=== PATIENT | female | born 1975 | race Caucasian/White ===

== ENCOUNTER 2024-09-26 09:10 | Day surgery (SDC) | payer BC ==
[~2024-09-26] VITALS: Ht 175.3 cm; Wt 97.3 kg
[~2024-09-26 09:10] MED LIST: CEFAZOLIN SODIUM 2 GM/20 ML SYR IV SCH; IBLOOD GLUCOSE TEST STRIP 1 EA TEST VI PRN; LACTATED RINGER'S 1,000 ML IV SCH; LIDOCAINE HCL 1% 30 ML SDV ONE; LIDOCAINE HCL 1% 5 ML SDV INJ ONE; METOPROLOL TAR100 MG PO; MIRENA1 EAC3 VI; MORPHINE SULFATE 4 MG/ML VIAL IV PRN; NASAL DECONGEST30 MG PO; OXYCODONE/APAP 5/325 TAB PO PRN; PHENAZOPYRIDINE HCL 100 MG TAB PO ONE; [UNRECOGNIZED DRUG - OTHER] PO
[2024-09-26 09:34] VITALS: BP 150/66
[2024-09-26] MEDS ORDERED: TYLENOL325 MG PO (09:37)
[2024-09-26] MEDS ORDERED: fentaNYL citrate 100 MCG/2 ML VIAL ONE (11:50)
[2024-09-26] MEDS ORDERED: LIDOCAINE HCL 2% 5 ML SDV ONE (12:20)
--- NOTE | 2024-09-26 12:52 | NUR ---
09/26/24 1252 Ivonne Neri 1245: PT ARRIVES TO PACU. REPORT RECEIVED FROM [employer] AND [employer]EVEL [employer].
[2024-09-26] MEDS ORDERED: MIDAZOLAM HCL 2 MG/2 ML VIAL IV PRN (13:00)
[2024-09-26] MEDS ORDERED: fentaNYL citrate 50 MCG/ML SDV IV PRN (13:00)
[2024-09-26] MEDS ORDERED: NALOXONE HCL 0.4 MG SYR IV PRN (13:00)
[2024-09-26] MEDS ORDERED: PHENAZOPYRIDINE HCL 100 MG TAB ONE ×2 (13:04→13:06)
[2024-09-26 13:27] VITALS: BP 163/99
== END 2024-09-26 13:35 | disposition home or self-care (01) ==
LOC: DS 09:10
PROVIDERS: ATTEND Urology
PROC: 0TVD8ZZ Restriction of Urethra, Via Natural or Artificial Opening Endoscopic (ICD-10-PCS; principal; 2024-09-26 11:00)
DX: N39.3 Stress incontinence (female) (male) (principal); N36.42 Intrinsic sphincter deficiency (ISD); M06.9 Rheumatoid arthritis, unspecified; I10 Essential (primary) hypertension; Z79.899 Other long term (current) drug therapy
CPT/HCPCS: 00910; J0690; J2003; J2704; J3010; J7121; L8606